=== PATIENT | male | born 1955 | race Caucasian/White ===

== ENCOUNTER 2023-04-27 08:04 | Observation (INO) ==
--- NOTE | 2023-03-13 12:26 | PAT Medication Instructions ---
Medication Instructions Date of Service March 13, 2023 Home Medications omeprazole 40 mg capsule,delayed release 40 mg PO QAM atenolol 50 mg tablet 50 mg PO BID lisinopril 20 mg tablet 20 mg PO QAM duloxetine 30 mg capsule,delayed release 30 mg PO QAM atorvastatin 10 mg tablet 10 mg PO QAM prednisone 10 mg tablet 5 mg PO QAM albuterol sulfate 90 mcg/actuation aerosol inhaler 1 puff inhalation UD PRN fluticasone propionate 250 mcg/actuation blister powder for inhalation (Flovent Diskus) 1 inh inhalation BID hydroxychloroquine 200 mg tablet 200 mg PO BID tamsulosin 0.4 mg capsule 0.4 mg PO QAM ASK your prescriber and surgeon hydroxychloroquine 200 mg tablet 200 mg PO BID DO NOT take the morning of surgery lisinopril 20 mg tablet 20 mg PO QAM Take morning of surgery With a small sip of water, OTHERWISE NOTHING TO EAT OR DRINK AFTER MIDNIGHT: omeprazole 40 mg capsule,delayed release 40 mg PO QAM atenolol 50 mg tablet 50 mg PO BID duloxetine 30 mg capsule,delayed release 30 mg PO QAM atorvastatin 10 mg tablet 10 mg PO QAM prednisone 10 mg tablet 5 mg PO QAM albuterol sulfate 90 mcg/actuation aerosol inhaler 1 puff inhalation UD PRN(use if needed; please bring with you to hospital day of surgery if possible) fluticasone propionate 250 mcg/actuation blister powder for inhalation (Flovent Diskus) 1 inh inhalation BID tamsulosin 0.4 mg capsule 0.4 mg PO QAM Take evening before surgery atenolol 50 mg tablet 50 mg PO BID fluticasone propionate 250 mcg/actuation blister powder for inhalation (Flovent Diskus) 1 inh inhalation BID Other Notes If you have any questions please call us at [phone] or [phone] or [phone] or [phone]
--- NOTE | 2023-03-17 11:03 | Anesthesiology Consultation ---
Date of Service March 17, 2023 Assessment & Plan (1) Encounter for pre-operative examination: - Outpatient joint assessment: Patient is currently scheduled for inpatient pathway. If re-evaluated and patient/surgeon requests outpatient pathway, patient is not recommended candidate for outpatient joint program from anesthesia standpoint. Chart Review Chart Review: Acceptable Risk for Surgery and Patient seen in Pre Admission Testing Teaching & Discussion Pre-Anesthesia Teaching/Discussion Notes: Instructed NPO after midnight before surgery, except medications with 15 cc of water. Medication instructions provided according to the PAT guidelines. History Surgery Operation Date: 03/29/23 07:15 Proposed Procedures p Left Reverse Total Shoulder Arthroplasty Biceps Tenodesis - Ar Lund MD Height/Weight Height: 5 ft 7 in Weight: 129.8 kg Allergies Allergy/AdvReac Type Severity Reaction Status Date / Time No Known Allergies Allergy Verified 03/13/23 10:43 Medications Home Medications Medication Instructions Recorded Confirmed Last Taken omeprazole 40 mg capsule,delayed 40 mg PO QAM 06/11/19 03/13/23 12/03/20 04:00 release atenolol 50 mg tablet 50 mg PO BID 11/13/20 03/13/23 12/01/20 05:00 lisinopril 20 mg tablet 20 mg PO QAM 11/13/20 03/13/23 12/02/20 18:00 duloxetine 30 mg capsule,delayed 30 mg PO QAM 09/17/21 03/13/23 Unknown release atorvastatin 10 mg tablet 10 mg PO QAM 11/30/22 03/13/23 Unknown prednisone 10 mg tablet 5 mg PO QAM 11/30/22 03/13/23 Unknown albuterol sulfate 90 mcg/actuation 1 puff inhalation UD PRN Shortness 03/13/23 03/13/23 Unknown aerosol inhaler Of Breath fluticasone propionate 250 1 inh inhalation BID 03/13/23 03/13/23 Unknown mcg/actuation blister powder for inhalation (Flovent Diskus) hydroxychloroquine 200 mg tablet 200 mg PO BID 03/13/23 03/13/23 Unknown tamsulosin 0.4 mg capsule 0.4 mg PO QAM 03/13/23 03/13/23 Unknown Past Medical History Medical History (Updated 03/17/23 @ 11:30 by Ariadne Mota PA-C) Acid reflux Controlled, stable per pt Ankylosing spondylitis Anxiety and depression Asthma controlled, stable per pt; denies any rescue inhaler use > 1 yr Enlarged thyroid thyroid biopsy normal per pt, follows with PCP; denies dysphagia History of urinary retention Hyperlipidemia Hypertension controlled, stable per pt Morbid obesity Prediabetes Sleep apnea CPAP-compliant Patient denies h/o stroke, seizures, heart attack, heart failure, blood clots/DVTs or blood transfusions. Exercise / Class Metabolic Activity III < 4 Walking/Shop/Light housework (denies chest discomfort or shortness of breath with usual activities-one floor home) Past Family History Family History Brother Diabetes Hypertension Past Surgical History Surgical History (Updated 03/17/23 @ 11:32 by Ariadne Mota PA-C) History of appendectomy History of arthroscopy of right shoulder History of esophagogastroduodenoscopy (EGD) Hx of cataract surgery R/L Hx of circumcision Circumcision + cystoscopy (12/03/20): LMA igel #5 at [facility] Hx of colonoscopy Hx of hernia repair S/P epidural steroid injection s/p gel injection R knee 3 weeks ago Slow to wake up after anesthesia denies needing re-intubation Past Anesthesia History No Family Hx of Anesthesia Complications and Other (slow to wake after anesthesia, denies needing reintubation) History of PONV No Hx of PONV and No Hx of Motion Sickness Social History Smoking Status: Never smoker Do You Dip or Chew Tobacco: Yes (1 can/1.5 days; advised) Hx Alcohol Use: Yes (hx-none for 30+ years) Hx Substance Use: No substance use type: does not use Review of Systems Patient denies chest pain, shortness of breath, dyspnea on exertion, fever, chills, cough, wheezing, or palpitations. Physical Exam Vital Signs Vitals BP 158/95 P 66 TEMP 98.3 SP02 95% on RA RESP 18 Physical Patient resting comfortably in chair in no acute distress, alert and oriented, responding appropriately throughout visit Full cervical extension range of motion without pain TMD < 3 finger breadths Mallampati Score 3 Dentition: intact, denies chipped or loose teeth, caps/crowns, implants or bridges Lungs: normal respiratory effort. Good air movement, clear throughout to auscu ltation, no adventitious breath sounds Cardiac: regular rate and rhythm, no murmurs noted Carotid arteries: negative bruit bilat Lab Results Anesthesia Preop Results Results Anesthesia Widget: WBC 8.88 K/ul (4.8-10.8) 03/17/23 Hgb 15.4 g/dl (14.0-18.0) 03/17/23 Hct 44.6 % (42.0-52.0) 03/17/23 Plt 159 K/uL (130-400) 03/17/23 Na 137 mmol/L (136-145) 03/17/23 K 3.6 mmol/L (3.5-5.1) 03/17/23 Cl 103 mmol/L (98-107) 03/17/23 CO2 27 mmol/L (21-32) 03/17/23 BUN 18 mg/dl (6-23) 03/17/23 Creat 0.96 mg/dl (0.6-1.4) 03/17/23 Glucose Level 151 mg/dl (70-99(Fasting)) H 03/17/23 PT 11.0 Seconds (9.0-12.0) 03/17/23 PTT 29.4 Seconds (21.0-31.0) 03/17/23 INR 1.0 (0.9-1.1) 03/17/23 Urine Color Dark Yellow 03/17/23 Urine Appearance Clear (Clear) 03/17/23 Urine pH 6.0 (4.5-7.5) 03/17/23 Urine Specific [place] 1.022 (1.000-1.030) 03/17/23 Urine Protein Negative (Negative) 03/17/23 Urine Glucose (UA) Negative (Negative) 03/17/23 Urine Ketones Negative (Negative) 03/17/23 Urine Blood Negative (Negative) 03/17/23 Urine Nitrite Negative (Negative) 03/17/23 Urine Bilirubin Negative (Negative) 03/17/23 Urine Urobilinogen Negative (Negative) 03/17/23 Urine Leukocyte Esterase Negative (Negative) 03/17/23 Blood Type O Negative 03/17/23 Antibody Screen NEGATIVE 03/17/23 Testing Electrocardiogram Date: 03/17/23 NSR, rate 68 bpm Chest X-Ray Date: 03/17/23 No active disease in the chest Echocardiogram Date: 06/13/22 EF 60-65% Wall motion is normal, no regional wall motion abnormalities Mildly dilated LA Mildly calcified mitral valve Stress Test Date: 11/18/21 Pharmacologic MPHR not reported Lexiscan stress EKG is not indicative of ischemia
--- NOTE | 2023-04-26 18:49 | History & Physical Report ---
Date of Service April 26, 2023 Assessment & Plan (1) Rotator cuff arthropathy of left shoulder: Plan: Treatment options discussed and patient would like to proceed with surgical intervention. Risks, benefits and alternatives to surgery including but not limited to infection, DVT, pain, stiffness, need for revision surgery, damage to blood vessels, damage to nerves, PE, , were discussed with the patient and they wish to proceed. Plan on left reverse total shoulder arthroplasty scheduled for [facility] on 04/27/[address] Lund. All questions answered. Patient will follow up post op. f History of Present Illness Chief Complaint: Left shoulder pain Primary Care Provider: Reji Thorpe MD 67yo male with PMHx significant for HTN, high cholesterol, DIONISOI, ankylosing spondylitis who presents with ongoing left shoulder pain. Pain is interfering with his daily activities. He has failed conservative measures and would like to proceed with surgical intervention. Patient denies headaches, sweats, fevers, chills, double vision, blurred vision, cough, sore throat, dysphagia, chest pain, sob, wheezing, n/v/d/c, numbness, tingling, fatigue, urinary symptoms, mood disorders. ROS positive for left shoulder pain and stiffness. Allergies Allergy/AdvReac Type Severity Reaction Status Date / Time No Known Allergies Allergy Verified 03/13/23 10:43 Home Medications Medication Instructions Recorded Confirmed Type omeprazole 40 mg capsule,delayed 40 mg PO QAM 06/11/19 03/13/23 History release atenolol 50 mg tablet 50 mg PO BID 11/13/20 03/13/23 History lisinopril 20 mg tablet 20 mg PO QAM 11/13/20 03/13/23 History duloxetine 30 mg capsule,delayed 30 mg PO QAM 09/17/21 03/13/23 History release atorvastatin 10 mg tablet 10 mg PO QAM 11/30/22 03/13/23 History prednisone 10 mg tablet 5 mg PO QAM 11/30/22 03/13/23 History albuterol sulfate 90 mcg/actuation 1 puff inhalation UD PRN Shortness 03/13/23 03/13/23 History aerosol inhaler Of Breath fluticasone propionate 250 1 inh inhalation BID 03/13/23 03/13/23 History mcg/actuation blister powder for inhalation (Flovent Diskus) hydroxychloroquine 200 mg tablet 200 mg PO BID 03/13/23 03/13/23 History tamsulosin 0.4 mg capsule 0.4 mg PO QAM 03/13/23 03/13/23 History Past Med/Surg History Medical History (Updated 04/26/23 @ 18:47 by Parveen Olmedo PA-C) Acid reflux Controlled, stable per pt Ankylosing spondylitis Anxiety and depression Asthma controlled, stable per pt; denies any rescue inhaler use > 1 yr Enlarged thyroid thyroid biopsy normal per pt, follows with PCP; denies dysphagia History of urinary retention Hyperlipidemia Hypertension controlled, stable per pt Morbid obesity Prediabetes Sleep apnea CPAP-compliant Surgical History (Updated 03/17/23 @ 11:32 by Ariadne Mota PA-C) History of appendectomy History of arthroscopy of right shoulder History of esophagogastroduodenoscopy (EGD) Hx of cataract surgery R/L Hx of circumcision Circumcision + cystoscopy (12/03/20): LMA igel #5 at [facility] Hx of colonoscopy Hx of hernia repair S/P epidural steroid injection s/p gel injection R knee 3 weeks ago Slow to wake up after anesthesia denies needing re-intubation Family History Brother Diabetes Hypertension Social History Smoking Status: Never smoker Tobacco Type: Smokeless Tobacco (Dip or Chew) Second Hand Exposure: No; Do You Dip or Chew Tobacco: Yes (1 can/1.5 days; advised); Tobacco Cessation Education Requested by Patient: No Hx Alcohol Use: Yes (hx-none for 30+ years) Hx Substance Use: No Preferred Language: [place] Communication Ability: Effective Darkroom Technician Required: No Beliefs That Will Affect Care: None Current Living Situation: Family Other Information That Helps Us Care for You: No Feels Safe at Home: Yes Safety Concerns: Feels Safe At This Time Assistive Devices: CPAP and Glasses Assistive Devices Comment: reading glasses prn Review of Systems All systems reviewed & are unremarkable except as noted in HPI & below Physical Exam Constitutional: well developed and well nourished; no acute distress Eyes: PERRL, conjunctivae normal, anicteric sclerae ENMT: external ear and nose normal, oropharynx normal Neck: trachea midline, no thyromegaly Respiratory: normal respiratory effort, lungs clear to auscultation Cardiovascular: RRR, no murmur, no edema Musculoskeletal: Left shoulder: Tenderness anterolateral acromion Positive impingement signs. Painful rOM. Abduction to 85 degrees, FF to 90 degrees, ER to 45 degrees. Weakness with strength testing. 3/5 abduction, 4/5 ER, 5/5 IR. Skin: no rashes, warm and dry Neurologic: patellar DTR's 2+ bilat, sensation intact Psychiatric: A+Ox3, euthymic affect Results & Data Diagnostic Findings Left shoulder radiographs demonstrate subacromial spurring with arthritic changes AC joint. Decreased acromial humeral interval. Type II/III acromion. Mild GH joint OA. MRI demonstrates large retracted tear of rotator cuff with mild fatty atrophy.
[~2023-04-27 08:04] MED LIST: ACETAMINOPHEN 500 MG TAB PO SCH; BUPIVACAINE 0.5 % 5 MG/1 ML PF 10ML VIAL ONE; CeleBREX 200 MG CAP PO SCH; FAMOTIDINE 20 MG TAB PO SCH; GABAPENTIN 300 MG CAP PO SCH; LR 15ML/HR IV SCH; LR 60ML/HR IV SCH; METOCLOPRAMIDE HCL 10 MG TABLET PO SCH; TRANEXAMIC ACID 1,000 MG **IV Intra-op IV SCH; TRANEXAMIC ACID 1,000 MG **IV Pre-op IV SCH; dexAMETHasone 4 MG TAB PO SCH
[2023-04-27] MEDS ORDERED: MIDAZOLAM HCL 1 MG/ML 2ML VIAL ONE (08:31)
[2023-04-27] MEDS ORDERED: fentaNYL citrate PF 100 MCG/2 ML VIAL ONE (08:32)
[2023-04-27] MEDS ORDERED: PROPOFOL IV EMULSION 10 MG/ML 20 ML VIAL IV ONE (09:16)
[2023-04-27] MEDS ORDERED: LIDOCAINE 2% 2 ML VIAL/AMP(20MG/ML) INFIL ONE (09:16)
[2023-04-27] MEDS ORDERED: ROCURONIUM BROMIDE 10 MG/ML 5 ML VIAL IV ONE (09:16)
--- NOTE | 2023-04-27 10:40 | History & Physical Bridge Note ---
Date of Service April 27, 2023 History & Physical Bridge Note I have examined the patient, reviewed the History & Physical and in the interval since the performance of the History & Physical I have noted the following changes of clinical significance: no changes noted
[2023-04-27] MEDS ORDERED: SUCCINYLCHOLINE CHLORIDE 20 MG/ML 10 ML VIAL IV ONE (11:03)
[2023-04-27] MEDS ORDERED: DEXAMETHASONE SOD INJ 4 MG/ML VIAL ONE (11:32)
[2023-04-27] MEDS ORDERED: ePHEDrine sulfate 50 MG/ML AMP ONE (11:34)
[2023-04-27] MEDS ORDERED: ONDANSETRON INJ 2 MG/ML 2 ML VIAL ONE (11:34)
[2023-04-27] MEDS ORDERED: PHENYLEPHRINE 100MCG/ML 5ML SYR ONE (11:55)
[2023-04-27] MEDS ORDERED: PHENYLEPHRINE HCL 10 MG/ML VIAL ONE (13:22)
[2023-04-27] MEDS ORDERED: SUGAMMADEX SODIUM 200 MG/2 ML VIAL IV ONE (13:59)
--- NOTE | 2023-04-27 14:30 | Operative Report ---
Post Operative Report Pre & Post Diagnosis Operation Date: 04/27/23 09:50 Pre-Op Diagnosis: Rotator cuff arthropathy of left shoulder, chronic irreparable rotator cuff tear, obesity BMI 44.2 Post-Op Diagnosis: Rotator cuff arthropathy of left shoulder, chronic irreparable rotator cuff tear, obesity BMI 44.2, biceps tendinopathy. I identified the patient and participated in the time-out.: Yes Procedure Operation Date: 04/27/23 09:50 Actual Procedures p Left Reverse Total Shoulder Arthroplasty, Biceps Tenodesis, increased difficulty BMI 44.2- Ar Lund MD Surgeon Ar Lund MD Recorder Helper [employer] Parveen HATFIELD Estimated Blood Loss 175 Findings Consistent with Post-Op Diagnosis Specimens Humeral head cut Drains 2 Hemovac Anesthesia Type General Regional Complications none Disposition Disposition: Recovery Room Indications 67-year-old male with chronic left shoulder pain weakness MRI demonstrating large retracted rotator cuff tear involving the upper subscapularis and complete supraspinatus tendon tears with biceps tendinopathy tenosynovitis. Patient has some AC joint osteoarthritis and subacromial spurs likely causing some impingement. Rotator cuff appears to be chronic and likely irreparable or poor prognosis for repair. Description of Procedure The patient was taken to the operating room and anesthetized under regional block and general anesthetic. The patient was positioned on the operating table in a 30 beach chair position with a towel roll under the medial border of the left scapula. The arm was draped free to be able to manipulate the shoulder as needed. The left upper extremity was prepped and draped in usual sterile fashion. Exam demonstrated an obese arm with good passive range of motion. Patient had obesity of the shoulder and arm.. An anterior deltopectoral approach was performed. A longitudinal incision was made in the deltopectoral interval. The skin was incised sharply. Subcutaneous flaps were elevated off the fascia. The cephalic vein was dissected out and retracted lateral with the deltoid. The clavipectoral fascia was divided at the lateral margin of the conjoined tendon and extended up to the CA ligament. The following findings were noted: Patient had a chronic upper subscapularis tendon tear extending into a large complete tear of the supraspinatus tendon and partial tearing of the infraspinatus tendon with delaminating type tear of the infraspinatus with the undersurface from the bursal surface of the infraspinatus. The biceps tendon had chronic tendinopathy instability proximally due to the subscapularis tendon tear and widened and ribbonlike thin tissue intra-articularly consistent with chronic biceps tendinopathy. The upper centimeter of the pectoralis was released for inferior exposure. A self-retaining retractor was placed. the biceps tendon was tenodesed to the pectoralis tendon with #2 FiberWire. [id number]-[id number] sutures incorporating a whipstitch type suture were utilized. Soft tissue tenodesis was performed to the pectoralis tendon. The proximal biceps was resected. The subscapular muscle fibers were split longitudinally at the level of the circumflex vessels. The circumflex vessels were identified and tied off with silk ties and divided laterally. A Kitner elevator was used to free up the inferior fibers of the subscapularis off of the capsule. The axillary nerve was identified with a tug test and protected with a blunt Cynthia retractor between the nerve and the capsule. The subscapularis tendon was then taken down off of the lesser tuberosity subperiosteally, a Vicryl traction suture was placed and a subperiosteal dissection was performed along the neck of the humerus as the arm was gradually externally rotated exposing the humeral head. The humeral head findings demonstrated minor arthritic changes mainly on the superior humeral head. A Hauser elevator was used to assist in releasing the capsule of the neck of the humerus. The capsule was divided with Noble scissors down to the glenoid released off the anterior glenoid and the rotator interval was released to meet the capsular release and a 360 release of the subscapularis was accomplished. A Fukuda retractor was placed into the joint retracting the humeral head posterior. Glenoid findings demonstrated intact articular cartilage and labrum circumferentially. The labrum and biceps tendon was resected. an anterior- inferior and posterior inferior capsular release were performed with electrocautery and a Hauser elevator on bone with the axillary nerve protected inferiorly by the retractor. Attention was then taken to the humeral preparation. The cutting guide was placed into the humeral head. It was positioned at 20 of retroversion. Oscillating saw was used to resect the humeral head giving the cut above the level of the posterior rotator cuff insertion site. The humerus was then prepared for the stem. I used the ascend flex stem from [employer]. The sizing broaches were used followed by trial broaches up to an ascend flex size 5B long which had the appropriate fit and fill. The appropriate sized cut protector was placed. The humerus was then retracted posterior to the glenoid. The glenoid was sized for a 25 mm baseplate with a 36 mm glenoid sphere.. The guide for the baseplate was positioned in a 10 inferior tilt and the central drill hole was made. The reamer for the 25 mm baseplate was used. The central drill was widened for the peg. The hydroxyapatite-coated 25 mm standard post aequalis baseplate was impacted into position. The base plate was transfixed with superior and inferior locking screws and anterior and posterior compression screws with stable fixation. The fan reamer was used for the 36 millimeter glenoid sphere. After irrigation the 36+2 inferior offset glenoid sphere was impacted onto the baseplate and the security screw was tightened. Attention was taken back to the humerus. The cut protector was removed and the +0 low offset humeral tray trial was assembled to the trial stem rotated appropriately to get bony coverage and then screwed in position. A trial reduction was performed. A +6, 36 mm reversed trial insert demonstrated good stability and no shuck. The trials were removed. 3 drill holes are made into the harder bone in the bicipital groove area and 3 #5 FiberWire sutures were placed transosseously. The canal was irrigated with pulsatile saline solution.. The final component was assembled. The final component was Tornier ascend flex 5B long PTC stem, +0 low offset reversed tray with a 36+6 mm reversed polyethylene insert.. This was then impacted into the humerus with a tight press-fit. It was reduced to the glenoid sphere. Stability was verified. Subscapularis was repaired with the #5 FiberWire sutures using Lul-Lalit suture technique. Lateral row soft tissue repair was performed with #2 FiberWire [id number] sutures. I sutured the delaminated infraspinatus tendon tissue together so that it would function as a unit. The pectoralis was repaired with #2 FiberWire [id number] sutures reinforcing the biceps tendon tenodesis. The arm was taken through a range of motion which demonstrated 150 degrees forward flexion 90 degrees AB duction external rotation to 40 degrees without tension on the repair the implant was stable through the range of motion tested. The wound was copiously irrigated. 2 Hemovac drains were placed. The deltopectoral interval was closed with [id number] #1 Vicryl sutures. The subcutaneous tissues were closed with 2-0 Vicryl sutures. The skin was closed with galina. Sterile dressings were applied and a shoulder immobilizer. Parveen HATFIELD, my physician bricklayer's assistant acted as first helper throughout the procedure .He performed functions including patient positioning, arm positioning, prepping and draping, soft tissue retraction, instrument management, suture management and performed the subcutaneous and skin closure and will participate in the postoperative care of the patient. There was increased level difficulty due to the size of the shoulder and his body habitus which made the procedure more difficult and added 30 to 45 minutes to the time of the procedure. I attest to the content of the Intraoperative Record and any orders documented therein. Any exceptions are noted below.
--- NOTE | 2023-04-27 15:02 | XRay Report ---
XR shoulder LT min 2V routine CLINICAL HISTORY: Post shoulder surgery COMPARISON STUDY: None. FINDINGS: Status post reverse left total shoulder arthroplasty. The hardware appears intact. No fract ure or dislocation. Skin gailna and surgical drains are in place. IMPRESSION: Reverse left total shoulder arthroplasty. No evidence for hardware complication. ACT 112: Negative or not required by law. Electronically signed by: Everett Vargas M.D. 04/27/2023 3:00 PM
[2023-04-27] MEDS ORDERED: ATROPINE SULFATE 0.1 MG/ML 10ML SYR IV PRN (15:06)
[2023-04-27] MEDS ORDERED: PROMETHAZINE HCL 12.5 MG in SODIUM CHLORIDE 0.9% 50 ML IV PRN (15:06)
[2023-04-27] MEDS ORDERED: FLUMAZENIL 0.1 MG/1 ML 10 ML VIAL IV PRN (15:06)
[2023-04-27] MEDS ORDERED: LABETALOL HCL IV 5 MG/ML 20ML IV PRN (15:06)
[2023-04-27] MEDS ORDERED: NALOXONE HCL 0.4 MG/1 ML VIAL/CARP IV PRN ×2 (15:06→15:36)
[2023-04-27] MEDS ORDERED: ONDANSETRON INJ 2 MG/ML 2 ML VIAL IV PRN ×2 (15:06→15:36)
[2023-04-27] MEDS ORDERED: fentaNYL citrate PF 100 MCG/2 ML VIAL IV PRN (15:06)
[2023-04-27] MEDS ORDERED: ePHEDrine sulfate 50 MG/ML AMP IV PRN (15:06)
--- NOTE | 2023-04-27 15:07 | Anesthesiology Progress Note ---
Date of Service April 27, 2023 Anesthesia Post Procedure Vital Signs Vital Signs: Temp Pulse Resp BP Pulse Ox O2 Del Method O2 Flow Rate 04/27/23 15:00 84 14 137/70 93 Oxymask 4 04/27/23 14:50 84 22 139/79 92 Oxymask 4 04/27/23 14:40 84 20 149/93 H 92 Oxymask 10 04/27/23 14:20 36.3 C L 82 20 124/79 93 Oxymask 10 04/27/23 08:41 Room Air 04/27/23 08:41 36.9 C 68 20 155/89 H 93 Room Air Pain Intensity Left Shoulder: Pain Intensity: 0 Transfer of Care Handoff Completed per policy Notes Mental Status: alert / awake / arousable Patient Amnestic to Procedure: Yes Nausea / Vomiting: adequately controlled Pain: adequately controlled Airway Patency, RR, SpO2: stable & adequate BP & HR: stable & adequate Hydration State: stable & adequate Anesthetic Complications: no major complications apparent
[2023-04-27] MEDS ORDERED: ALBUTEROL HFA 8 GM INHALER INH PRN (15:36)
[2023-04-27] MEDS ORDERED: METOCLOPRAMIDE HCL INJ 5 MG/ML 2 ML VIAL IV PRN (15:36)
[2023-04-27] MEDS ORDERED: bisacodyL 10 MG SUPP PR PRN (15:36)
[2023-04-27] MEDS ORDERED: HYDROmorphone INJ 0.5 MG/0.5 ML SYR IV PRN (15:36)
[2023-04-27] MEDS ORDERED: MAGNESIUM HYDROXIDE SUSP 30 ML UDC PO PRN (15:36)
[2023-04-27] MEDS ORDERED: oxyCODONE HCL IR 5 MG TAB (IMMEDIATE RELEASE) PO PRN (15:36)
[2023-04-27] MEDS: SODIUM CHLORIDE 0.9% 1,000 ML IV SCH (16:04)
[2023-04-27] MEDS: ACETAMINOPHEN 500 MG TAB PO SCH (20:25)
[2023-04-27] MEDS: DOCUSATE SODIUM 100 MG CAP PO SCH (20:25)
[2023-04-27] MEDS: ATENOLOL 50 MG TABLET PO SCH (20:25)
[2023-04-27] MEDS: ceFAZolin 2000MG 2,000 MG/15 ML SYR IV SCH (20:29)
[2023-04-27] MEDS ORDERED: SENNA 8.6 MG TAB PO SCH (21:00)
[2023-04-27] MEDS ORDERED: FLUTICASONE FUROATE 200MCG 14 PUFFS/INHALER INH SCH (21:00)
[2023-04-28] MEDS: SODIUM CHLORIDE 0.9% 1,000 ML IV SCH (02:48)
[2023-04-28] MEDS: ACETAMINOPHEN 500 MG TAB PO SCH (05:19)
[2023-04-28] MEDS: ceFAZolin 2000MG 2,000 MG/15 ML SYR IV SCH (05:19)
--- NOTE | 2023-04-28 07:39 | Orthopedic Progress Note ---
Date of Service April 28, 2023 Assessment & Plan (1) Rotator cuff arthropathy of left shoulder: Plan: Postop day #1 left reverse total shoulder arthroplasty -Pain management as written -DVT prophylaxis: SCDs, aspirin 81 mg daily -PT/OT: No shoulder range of motion. May do elbow/wrist/hand motion, shrugs, pendulums. No formal therapy until he is about 6 weeks postop. -A.m. labs are pending -Discharge planning: Plan on discharge home today as long as he progresses well with therapy and remains stable. Admission and Anticipated Discharge Date Admission Date: April 27, 2023 Subjective Patient is postop day #1 left reverse total shoulder arthroplasty. He is doing well this morning. Pain is well controlled. Still some numbness in his fingers residual from nerve block. No other complaints. Denies chest pain, shortness of breath, nausea/vomiting/diarrhea, headaches or dizziness. Review of Systems Review of Systems: All systems reviewed & are unremarkable except as noted in Subjective Physical Exam Physical Exam: Left shoulder: Sling is in place. Fingers are mobile. Dressing is clean, dry, intact. He has good flagger strength. Able to extend his wrist. Distally neurovascular status and sensation is grossly intact. Results & Data Vital Signs (Past 12 Hours) Vital Signs Temp Pulse Resp BP Pulse Ox O2 Del Method O2 Flow Rate 04/28/23 02:47 36.5 C 75 22 143/87 H 94 Nasal Cannula 4 04/27/23 20:30 Room Air 04/27/23 22:24 36.8 C 78 18 116/67 94 Nasal Cannula 4 04/27/23 20:26 36.7 C 88 16 134/92 90 Room Air
[2023-04-28] MEDS: DOCUSATE SODIUM 100 MG CAP PO SCH (08:21)
[2023-04-28] MEDS ORDERED: PANTOprazole 40 MG TAB PO SCH (09:00)
[2023-04-28] MEDS ORDERED: TAMSULOSIN HCL 0.4 MG CAP PO SCH (09:00)
[2023-04-28] MEDS ORDERED: lisinopril 20 MG TAB PO SCH (09:00)
[2023-04-28] MEDS ORDERED: predniSONE 5 MG TAB PO SCH (09:00)
[2023-04-28] MEDS ORDERED: MULTIVITAMIN TAB PO SCH (09:00)
[2023-04-28] MEDS ORDERED: DULoxetine HCL 30 MG CAP PO SCH (09:00)
[2023-04-28] MEDS ORDERED: ATORVASTATIN 10 MG TAB PO SCH (09:00)
[2023-04-28 09:11] LABS: Hemoglobin 14.5 g/dl (14.0-18.0); Mean Corpuscular Hemoglobin 30.3 pg (25.0-34.0); Mean Corpuscular Hgb Conc 34.5 g/dL (32.0-36.0); Mean Corpuscular Volume 87.9 fL (80.0-100.0); Mean Platelet Volume 12.1 fL (9.4-12.4); Platelet Count 180 K/uL (130-400); RDW Coefficient of Variation 12.8 % (11.5-14.5); RDW Standard Deviation 41.3 fL (36.4-46.3); Red Blood Count 4.78 M/uL (4.70-6.10); White Blood Count 18.32 K/ul (4.8-10.8)
[2023-04-28] MEDS: ATENOLOL 50 MG TABLET PO SCH (09:23)
[2023-04-28 09:41] LABS: BUN Creatinine Ratio 19.4 (10-20); Calcium 9.1 mg/dl (8.6-10.3); Creatinine Clr Calc Pharmacy 91.5 ml/min; Est GFR (African American) 90.8 ml/min; Est GFR (Non-African American) 78.4 ml/min; Potassium 3.7 mmol/L (3.5-5.1)
[2023-04-28 09:51] LABS: Basophils # (auto) 0.02 K/uL (0.00-0.20); Basophils % (auto) 0.1 %; Immature Granulocytes # (auto) 0.09 K/uL (0.01-0.20); Immature Granulocytes % (auto) 0.5 %; Lymphocytes # (auto) 0.79 K/uL (1.20-3.40); Lymphocytes % (auto) 4.3 %; Monocytes # (auto) 0.74 K/uL (0.11-0.59); Neutrophils # (auto) 16.68 K/uL (1.40-6.50); Neutrophils % (auto) 91.1 %; RBC Morphology Unremarkable
--- NOTE | 2023-04-28 13:30 | Consultation ---
Date of Consultation April 28, 2023 Assessment & Plan (1) Rotator cuff arthropathy of left shoulder: Status post left shoulder arthroplasty. Postoperative day 1. Management per primary team (2) HTN (hypertension): Stable. Continue atenolol and lisinopril (3) Hypercholesterolemia: Stable. Continue atorvastatin (4) Benign prostatic hyperplasia with urinary obstruction: Stable. Continue tamsulosin (5) Ankylosing spondylitis: Stable. Continue hydroxychloroquine and prednisone Plan Medically stable. He is stable for discharge home per primary team History of Present Illness Requesting Physician: Dr. Lund Reason for Consultation: Medical management Attending Physician: Ar Lund MD History of Present Illness 63-year-old white male who underwent left shoulder arthroplasty yesterday. Postoperative day #1. He is stable at this time. Blood pressure is acceptable. Pertinent medications have been ordered. He is medically stable for discharge home per the primary care team. Allergies Allergy/AdvReac Type Severity Reaction Status Date / Time No Known Allergies Allergy Verified 04/27/23 08:37 Home Medications Medication Instructions Recorded Confirmed Type omeprazole 40 mg capsule,delayed 40 mg PO QAM 06/11/19 04/27/23 History release atenolol 50 mg tablet (Tenormin) 50 mg PO BID 11/13/20 04/27/23 History lisinopril 20 mg tablet 20 mg PO QAM 11/13/20 04/27/23 History duloxetine 30 mg capsule,delayed 30 mg PO QAM 09/17/21 04/27/23 History release (Cymbalta) atorvastatin 10 mg tablet 10 mg PO QAM 11/30/22 04/27/23 History prednisone 10 mg tablet 5 mg PO QAM 11/30/22 04/27/23 History albuterol sulfate 90 mcg/actuation 1 puff inhalation UD PRN Shortness 03/13/23 04/27/23 History aerosol inhaler Of Breath fluticasone propionate 250 1 inh inhalation BID 03/13/23 04/27/23 History mcg/actuation blister powder for inhalation (Flovent Diskus) hydroxychloroquine 200 mg tablet 200 mg PO BID 03/13/23 04/27/23 History (Plaquenil) tamsulosin 0.4 mg capsule 0.4 mg PO QAM 03/13/23 04/27/23 History acetaminophen 500 mg tablet 1,000 mg PO Q8 #60 tabs 04/28/23 Rx (Tylenol Extra Strength) aspirin 81 mg tablet,delayed 81 mg PO DAILY #30 tabs 04/28/23 Rx release (Enteric Coated Aspirin) cefadroxil 500 mg capsule 500 mg PO BID #28 caps 04/28/23 Rx oxycodone 5 mg tablet 5 - 10 mg PO .Q4h-6h PRN pain #30 04/28/23 Rx tabs Patient History Medical History (Updated 04/28/23 @ 13:28 by Mike Pinto MD) Acid reflux Controlled, stable per pt Ankylosing spondylitis Anxiety and depression Asthma controlled, stable per pt; denies any rescue inhaler use > 1 yr Enlarged thyroid thyroid biopsy normal per pt, follows with PCP; denies dysphagia History of urinary retention Hyperlipidemia Hypertension controlled, stable per pt Morbid obesity Prediabetes Sleep apnea CPAP-compliant Surgical History History of appendectomy History of arthroscopy of right shoulder History of esophagogastroduodenoscopy (EGD) Hx of cataract surgery R/L Hx of circumcision Circumcision + cystoscopy (12/03/20): LMA igel #5 at [facility] Hx of colonoscopy Hx of hernia repair S/P epidural steroid injection s/p gel injection R knee 3 weeks ago Slow to wake up after anesthesia denies needing re-intubation Family History Brother Diabetes Hypertension Social History Smoking Status: Never smoker Tobacco Type: Smokeless Tobacco (Dip or Chew) Second Hand Exposure: No; Do You Dip or Chew Tobacco: Yes (1 can/1.5 days; advised); Tobacco Cessation Education Requested by Patient: No Hx Alcohol Use: Yes (hx-none for 30+ years) Hx Substance Use: No Preferred Language: Indian Communication Ability: Effective Preparation Operator Required: No Beliefs That Will Affect Care: None Current Living Situation: Family Other Information That Helps Us Care for You: No Feels Safe at Home: Yes Safety Concerns: Feels Safe At This Time Assistive Devices: None Assistive Devices Comment: reading glasses prn Review of Systems Review of Systems: Constitutional-no fever or chills ENT-no blurred vision, no double vision, no epistaxis, no sore throat Respiratory-no cough, no wheezing, no shortness of breath Cardiac-no palpitations, no chest pain, no syncope GI-no nausea, vomiting, diarrhea, melena, hematochezia -no urinary retention, no urinary incontinence, no dysuria, no hematuria Musculoskeletal-left shoulder surgery site is bandaged. Left arm is in a sling Skin-no bruising, no rashes, no pruritus Neuro-no isolated weakness, no paresthesia, no weakness Psych-no depression, no anxiety Physical Exam Physical Exam: General-alert and oriented x3, no fevers, no chills HEENT-head atraumatic and normocephalic, pupils equal and reactive to light, extraocular muscles intact Neck-no lymphadenopathy or thyromegaly, trachea midline Chest-clear to auscultation percussion. No rales wheezing or rhonchi Cardiac-regular rate and rhythm, normal S1 and S2 Abdomen-normal bowel sounds, nontender, no hepatosplenomegaly Extremities-left shoulder surgical site is bandaged. Left arm is in a sling. No peripheral edema Neuro- cranial nerves II through XII intact, motor and sensory function within normal limits, strength symmetrical , no focal deficits Psych-normal affect, normal mood Results & Data Vital Signs (Past 12 Hours) Vital Signs Temp Pulse Resp BP Pulse Ox O2 Del Method O2 Flow Rate 04/28/23 09:23 78 04/28/23 07:55 36.6 C 62 16 149/88 H 92 Room Air 04/28/23 07:33 Oxymask 4 04/28/23 02:47 36.5 C 75 22 143/87 H 94 Nasal Cannula 4 Laboratory Results 04/28/23 08:26 04/28/23 08:26 PG Care Time/CCT Total # of Minutes Spent Total Time Spent with Patient: Total time spent is greater than 50% in coordination of care (as documented) at patient's floor/unit and/or counseling patient: Coding Level of Care Code 97683 INT INP/OBS CARE 2MIN Diagnoses Rotator cuff arthropathy of left shoulder M12.812 HTN (hypertension) I10 Hypercholesterolemia E78.00 Benign prostatic hyperplasia with urinary obstruction N40.1; N13.8 Ankylosing spondylitis M45.9
--- NOTE | 2023-04-28 16:29 | Discharge Summary ---
Date of Service April 28, 2023 Admission HPI Per Admitting Provider 67yo male with PMHx significant for HTN, high cholesterol, DIONISIO, ankylosing spondylitis who presents with ongoing left shoulder pain. Pain is interfering with his daily activities. He has failed conservative measures and would like to proceed with surgical intervention. Patient denies headaches, sweats, fevers, chills, double vision, blurred vision, cough, sore throat, dysphagia, chest pain, sob, wheezing, n/v/d/c, numbness, tingling, fatigue, urinary symptoms, mood disorders. ROS positive for left shoulder pain and stiffness. Admission Exam Per Admitting Provider Constitutional: well developed and well nourished; no acute distress Eyes: PERRL, conjunctivae normal, anicteric sclerae ENMT: external ear and nose normal, oropharynx normal Neck: trachea midline, no thyromegaly Respiratory: normal respiratory effort, lungs clear to auscultation Cardiovascular: RRR, no murmur, no edema Musculoskeletal: Left shoulder: Tenderness anterolateral acromion Positive impingement signs. Painful rOM. Abduction to 85 degrees, FF to 90 degrees, ER to 45 degrees. Weakness with strength testing. 3/5 abduction, 4/5 ER, 5/5 IR. Skin: no rashes, warm and dry Neurologic: patellar DTR's 2+ bilat, sensation intact Psychiatric: A+Ox3, euthymic affect Principal Diagnosis Left shoulder rotator cuff tear Discharge Exam Left shoulder: Sling is in place. Fingers are mobile. Dressing is clean, dry, intact. He has good color straining bag washer strength. Able to extend his wrist. Distally neurovascular status and sensation is grossly intact. Discharge Data Allergies Allergy/AdvReac Type Severity Reaction Status Date / Time No Known Allergies Allergy Verified 04/27/23 08:37 Consultations 03/24/23 11:10 Consult Hospitalist Routine Procedures Performed Operation Date: 04/27/23 09:50 Actual Procedures p Left Reverse Total Shoulder Arthroplasty, Biceps Tenodesis(Left) - Ar Lund MD Ordered Studies 04/27/23 05:00 US - OR guided needle placemen Routine Hospital Course (1) Rotator cuff arthropathy of left shoulder: Postop day #1 left reverse total shoulder arthroplasty -Pain management as written -DVT prophylaxis: SCDs, aspirin 81 mg daily -PT/OT: No shoulder range of motion. May do elbow/wrist/hand motion, shrugs, pendulums. No formal therapy until he is about 6 weeks postop. -A.m. labs are pending -Discharge planning: Plan on discharge home today as long as he progresses well with therapy and remains stable. Lab Results 04/27/23 04/27/23 04/28/23 Range/Units 08:38 14:26 08:26 WBC 18.32 H (4.8-10.8) K/ul RBC 4.78 (4.70-6.10) M/uL Hgb 14.5 (14.0-18.0) g/dl Hct 42.0 (42.0-52.0) % MCV 87.9 (80.0-100.0) fL MCH 30.3 (25.0-34.0) pg MCHC 34.5 (32.0-36.0) g/dL RDW Std Deviation 41.3 (36.4-46.3) fL RDW Coeff of Gal 12.8 (11.5-14.5) % Plt Count 180 (130-400) K/uL MPV 12.1 (9.4-12.4) fL Immature Gran % (Auto) 0.5 % Neut % (Auto) 91.1 % Lymph % (Auto) 4.3 % Kenton % (Auto) 4.0 % Eos % (Auto) 0.0 % Baso % (Auto) 0.1 % Neut # (Auto) 16.68 H (1.40-6.50) K/uL Lymph # (Auto) 0.79 L (1.20-3.40) K/uL Kenton # (Auto) 0.74 H (0.11-0.59) K/uL Eos # (Auto) 0.00 (0.00-0.50) K/uL Baso # (Auto) 0.02 (0.00-0.20) K/uL Immature Gran # (Auto) 0.09 (0.01-0.20) K/uL RBC Morphology Unremarkable Sodium (136-145) mmol/L Potassium (3.5-5.1) mmol/L Chloride (98-107) mmol/L Carbon Dioxide (21-32) mmol/L Anion Gap (3-11) BUN (6-23) mg/dl Creatinine (0.6-1.4) mg/dl Est Cr Clr Drug Dosing ml/min Est GFR ( Amer) ml/min Est GFR (Non-Af Amer) ml/min BUN/Creatinine Ratio (10-20) Glucose (70-99(Fasting)) mg/dl POC Glucose 123 H 146 H (70-99) mg/dl Calcium (8.6-10.3) mg/dl 04/28/23 Range/Units 08:26 WBC (4.8-10.8) K/ul RBC (4.70-6.10) M/uL Hgb (14.0-18.0) g/dl Hct (42.0-52.0) % MCV (80.0-100.0) fL MCH (25.0-34.0) pg MCHC (32.0-36.0) g/dL RDW Std Deviation (36.4-46.3) fL RDW Coeff of Gal (11.5-14.5) % Plt Count (130-400) K/uL MPV (9.4-12.4) fL Immature Gran % (Auto) % Neut % (Auto) % Lymph % (Auto) % Kenton % (Auto) % Eos % (Auto) % Baso % (Auto) % Neut # (Auto) (1.40-6.50) K/uL Lymph # (Auto) (1.20-3.40) K/uL Kenton # (Auto) (0.11-0.59) K/uL Eos # (Auto) (0.00-0.50) K/uL Baso # (Auto) (0.00-0.20) K/uL Immature Gran # (Auto) (0.01-0.20) K/uL RBC Morphology Sodium 137 (136-145) mmol/L Potassium 3.7 (3.5-5.1) mmol/L Chloride 102 (98-107) mmol/L Carbon Dioxide 25 (21-32) mmol/L Anion Gap 10 (3-11) BUN 19 (6-23) mg/dl Creatinine 0.98 (0.6-1.4) mg/dl Est Cr Clr Drug Dosing 91.5 ml/min Est GFR ( Amer) 90.8 ml/min Est GFR (Non-Af Amer) 78.4 ml/min BUN/Creatinine Ratio 19.4 (10-20) Glucose 181 H (70-99(Fasting)) mg/dl POC Glucose (70-99) mg/dl Calcium 9.1 (8.6-10.3) mg/dl Total Time Total Time Spent Total Time Spent (In Minutes): 20 Discharge Plan Discharge Items Patient Disposition: Home - Self-Care Reason For Visit: Left Shoulder Rotator Cuff Tear Arthroplathy Discharge Diagnosis: Left shoulder rotator cuff tear Activity: Per Instructions section Non-emergency contact: Surgeon Call non-emergency contact if: you have any medication questions, your pain is not controlled, you have a fever, your temperature is above 101, your wound has increased redness and your wound has increased drainage Follow-up/Referrals: Reji Thorpe MD [Primary Care Provider] - Diet: Regular Addtl Attending Provider Instructions: ACTIVITY RECOMMENDATIONS: SELF CARE INSTRUCTIONS AFTER TOTAL SHOULDER ARTHROPLASTY REVERSE A. You may do daily exercises as taught in physical therapy while in hospital. No lifting with the operative arm. B. You are to wear your sling/immobilizer at all times EXCEPT when performing your daily exercises and for hygiene purposes. C. You may perform dry, daily dressing changes. Please keep your incision covered. You may shower 48 hours after surgery. Do not apply soap or any ointment /lotions directly over incision. Do not soak incision in bath tub/swimming pool. D. You may use ice as needed to operative shoulder. SPECIAL CARE INSTRUCTIONS: VERY IMPORTANT TO READ AND REVIEW A. There are a few signs you need to watch for after you are home. Call [facility] at [phone] if you experience any of the followin. Increased severe shoulder pain. Some pain is expected especially when you exercise. 2. Increased swelling in you shoulder or arm; pain or swelling in either upper extremity. 3. Any fluid drainage from the incision. 4. Shortness of breath or chest pain. B. Please call [facility] at [phone] if you have any questions or concerns about your operation or recovery. C. Call your physician if: 1. Temperature is greater than 101 degrees (F). 2. Pain is not relieved by prescribed pain medications. 3. Increase drainage or redness from incision. 4. Unanswered questions or concerns. FOLLOW UP VISIT: Please call [facility] at [phone] to schedule a follow up appointment with Dr. Lund or his PA in 12-14 days from your surgery date. Stand-Alone Forms: My [facility] [employer], Smoking Cessation Medications and DC Order Prescriptions: New acetaminophen [Tylenol Extra Strength] 500 mg Tablet 1,000 mg PO Q8 Qty: 60 0RF oxycodone 5 mg Tablet 5 - 10 mg PO .Q4h-6h MDD 6 PRN (Reason: pain) Qty: 30 0RF Rx Instructions: Ongoing therapy, Dr. Lund supervised cefadroxil 500 mg capsule 500 mg PO BID Qty: 28 0RF aspirin [Enteric Coated Aspirin] 81 mg tablet,delayed release (DR/EC) 81 mg PO DAILY Qty: 30 0RF Continued prednisone 10 mg tablet 5 mg PO QAM atorvastatin 10 mg tablet 10 mg PO QAM duloxetine [Cymbalta] 30 mg capsule,delayed release(DR/EC) 30 mg PO QAM omeprazole 40 mg capsule,delayed release(DR/EC) 40 mg PO QAM lisinopril 20 mg Tablet 20 mg PO QAM atenolol [Tenormin] 50 mg Tablet 50 mg PO BID albuterol sulfate 90 mcg/actuation HFA aerosol inhaler 1 puff INHALATION UD PRN (Reason: Shortness Of Breath) Patient Comments: has never used Flovent Diskus 250 mcg/actuation Blister With Device 1 inh INHALATION BID Patient Comments: "has not been using" tamsulosin 0.4 mg capsule 0.4 mg PO QAM Held hydroxychloroquine [Plaquenil] 200 mg Tablet 200 mg PO BID Hold Instructions: Resume on 05/11/23. Patient Comments: takes both of his tablets once in QAM Discharge Orders: Discharge Order (Routine); Ordered 04/28/23 Ordered By: Parveen Potts/Other Patient Handouts: Understanding Deep Vein Thrombosis, DVT Post Op Prevention Admission Data Admit Date/Time: 04/27/23 14:23 Attending Provider: Ar Lund Admit Provider: Ar Lund Primary Care Provider: Reji Thorpe Other Providers: Mak Noonan Robert R. Other Interventions: Discharge Summary Assessment (RN) Last Done: 04/28/23 09:28
== END 2023-04-28 12:54 | disposition home or self-care (01) ==
LOC: ASU 08:04 → 3E 08:04